=== PATIENT | female | born 1985 | race Caucasian/White ===

== ENCOUNTER 2018-06-29 19:34 | Emergency (ER) | payer OTHER ==
[2018-06-29] MEDS ORDERED: LORazepam 2 MG/ML INJ IVP ONE (19:46)
--- NOTE | 2018-06-29 19:50 | EDPHY ---
H & P Source: Patient Exam Limitations: Clinical condition Time Seen by Provider: 06/29/18 19:47 HPI/ROS: CHIEF COMPLAINT: Altered mental status HISTORY OF PRESENT ILLNESS: Patient is a 30-year-old female who was disturbing the peace at [employer]. She was apparently walking up to other shoppers and staring at them and cuffing her hands around her eyes and looking at them closely on their face. She is ambulating without difficulty. She is rambling but is not willing to answer questions. She has dilated pupils. She is moving normally and is continually trying to get out of bed. She is not combative. The paramedics and dose of been unable to obtain any past medical history. She will not tell us her name. For paramedics she was tachycardic with stable blood pressure. Her blood sugar was 130. She also has a faint blanching rash across her chest and upper back. Severity: Moderate Modifying factors: None REVIEW OF SYSTEMS: Unable to obtain secondary to condition EXAM: GENERAL: Awake, tracks, moves all extremities. HEAD: Atraumatic, normocephalic. EYES: Pupils 4+, equal round and reactive to light, extraocular movements intact, sclera anicteric, conjunctiva are normal. ENT: TMs normal, nares patent, oropharynx clear without exudates. Moist mucous membranes. NECK: Normal range of motion, supple without lymphadenopathy or JVD. LUNGS: Breath sounds clear to auscultation bilaterally and equal. No wheezes rales or rhonchi. HEART: Regular rate and rhythm without murmurs, rubs or gallops. ABDOMEN: Soft, nontender, normoactive bowel sounds. No guarding, no rebound. No masses appreciated. BACK: No CVA tenderness, no spinal tenderness, step-offs or deformities EXTREMITIES: Normal range of motion, no pitting or edema. No clubbing or cyanosis. NEUROLOGICAL: Cranial nerves II through XII grossly intact. Normal speech, normal gait. 5/5 strength, normal movement in all extremities, normal sensation , normal reflexes PSYCH: Unable to assess SKIN: Fine blanching rash to upper chest and back consistent with vasodilation (Greg Copploa) Constitutional: Initial Vital Signs Temperature (C) 36.8 C 06/29/18 19:50 Heart Rate 143 H 06/29/18 19:50 Respiratory Rate 18 06/29/18 19:50 Blood Pressure 138/113 H 06/29/18 19:50 O2 Sat (%) 95 06/29/18 19:50 O2 Delivery Mode Room Air Allergies/Adverse Reactions: Unable to Assess Allergy (Unverified 06/29/18 19:50) Home Medications: Medication Instructions Recorded Unobtainable 06/29/18 Medical Decision Making - Diagnostics EKG Interpretation: An EKG obtained and was read and documented in trace view. Please see trace view for full reading and report. Sinus rhythm, no acute ischemic changes or arrhythmias or interval abnormalities. (Greg Coppola) ED Course/Re-evaluation: 10:50 p.m. patient heart rate now 80. Blood pressure 130/70. She is sleeping comfortably. She will follow commands and is moving without difficulty. She is not hyperthermic. She still has slightly enlarged pupils but they are reactive. Still not answering questions. Will transfer care to Dr. Garcia 11: 00 p.m.. (Greg Coppola) Differential Diagnosis: Partial list of the Differential diagnosis considered include but were not limited to; sympathomimetic, anticholinergic, schizophrenic and although unlikely based on the history and physical exam, I also considered polysubstance abuse, serotonin syndrome, malignant hypothermia. (Greg Coppola) Other Provider: [address] Coppola pending re-evaluation. 0420 patient is now a will wake but somnolent from the medications. She is answering questions. Patient admits she has a history of bipolar disorder. Takes Effexor and other medications. Also states she has been self medicating with cannabinoids. Patient states she is not recall have an episode like this but she is very vague. Not answering direct questions. Vital signs have resolved. Given her underlying diagnosis and this event plan will be to have a mental health evaluation later this morning. (Jack Garcia) I assumed care of the patient at 0700. The patient was evaluated by Mental Health. They have now obtain the history that she used hallucinogenic mushrooms yesterday. Patient does report a history of bipolar mood disorder and has been off her medications for 2 weeks. At this point time she is now alert and oriented. She has no homicidal or suicidal ideations in her abnormal behavior has resolved. The patient does contract for safety. She has requested outpatient resources which she has been provided. (Colin Lacy) - Data Points Laboratory Results: Laboratory Results 06/29/18 20:08 06/29/18 20:08 Medications Given: Discontinued Medications Haloperidol Lactate (Haldol Injection) 5 mg IVP EDNOW ONE Stop: 06/29/18 20:20 Last Admin: 06/29/18 20:21 Dose: 5 mg Lorazepam (Ativan Injection) 1 mg IVP EDNOW ONE Stop: 06/29/18 19:47 Last Admin: 06/29/18 19:46 Dose: 1 mg Departure - Departure Disposition: Home, Routine, Self-Care Clinical Impression: Hallucinogenic mushrooms use disorder, moderate Bipolar mood disorder Qualifiers: Active/Remission status: currently active Current bipolar episode type: mixed Current episode severity: moderate Qualified Code(s): F31.62 - Bipolar disorder , current episode mixed, moderate Condition: Good Instructions: Bipolar Disorder (ED) Additional Instructions: 1. Please follow-up with the mental health resources provided in the ED today. 2. [facility] does operate a 02/11 psychiatric crisis unit located at [address] [place] [address]. The telephone number for the 24 hour crisis center is [phone]. 3. Please return to the ED if you are feeling suicidal, having thoughts of harming yourself/others or should you feel unsafe or have worsening symptoms. Referrals: [facility],. [Clinic] - As per Instructions
[2018-06-29] MEDS ORDERED: HALOPERIDOL LACT 5 MG/ML INJ ONE (20:12)
[2018-06-29] MEDS ORDERED: HALOPERIDOL LACT 5 MG/ML INJ IVP ONE (20:19)
[2018-06-29 20:21] LABS: PLATELET COUNT 334 10^3/uL (150-400)
--- NOTE | 2018-06-29 21:00 | CPEKG ---
Test Reason : OPEN Blood Pressure : / mmHG Vent. Rate : 089 BPM Atrial Rate : 089 BPM P-R Int : 123 ms QRS Dur : 083 ms QT Int : 371 ms P-R-T Axes : 074 070 058 degrees QTc Int : 452 ms Sinus rhythm Confirmed by Irineo Ríos ([id number]) on 06/29/2018 8:59:43 PM Referred By: IRINEO RÍOS Confirmed By:Irineo Ríos
[2018-06-30 10:12] VITALS: BP 108/78
--- NOTE | 2018-06-30 11:09 | ASMTTLCEVL ---
TLC Evaluation - Basic Information Evaluation Start Date and 06/30/2018 08:45 AM Time Hospital Status Answers: M1 Hold 72-hr M1 Hold Start Date 06/29/2018 06:57 PM and Time Patient statement Notes: I went to a store, was out and about. Thao been off my meds. I dont remember yesterday too well. I did use mescaline yesterday. Im not suicidal. Narrative Notes: Pt is a 32 yo, , unemployed, homeless, female with reported history of Bipolar Disorder, cannabis use disorder, severe, and recent hallucinogen use, brought to [facility] ED by [facility] on M1 hold which noted: Respondent did not know where she was, walked up to customer and staff only a few inches away from them, appeared to be on some sort of drug, no blinking of eyes, strange odor from the person, can not tell name or anything about her. Pt had been administered Haldol 5 mg IVP at hrs and Ativan 1 mg IVP at 6 hrs. Pt reported being diagnosed with Bipolar about 4 years ago. She reported she has been off her psych meds for the past 2 weeks because she lost her prescription from [facility]. Pt appeared somnolent, required additional time and frequent prompts to wake up when attempting to complete BDI/BSS questionnaires. Her pupils continued to appear somewhat dilated. BAL was zero. UDS results positive for marijuana. Pt admitted to using mescaline yesterday, which is not detected via standard UDS screen. Pt denied having recent/current suicidal ideation/intent/plan to kill self. Pt denied any homicidal ideation/intent/plans to harm/kill anybody else. She was somewhat alert but oriented X 4. Diagnosis History Notes: Pt reported being diagnosed with Bipolar about 4 years ago. Prior suicide attempts Notes: Pt denied any past history of suicide attempts. Prior hospitalizations Notes: Pt reported having been hospitalized two times. Her first hospitalization was at [facility] near [place], [place] at age 28. She reported being hospitalized the second time at [facility] in [place], [place] 2 years ago for depression. Treatment Responses Notes: She reported she has been off her psych meds for the past 2 weeks because she lost her prescription from [facility]. History of violence Notes: Pt denied any homicidal ideation/intent/plans to harm/kill anybody else. Pt denied any past history of aggression or violence. Therapist: None. Psychiatrist: None. Medications (name, dosage, route, freq uency) Notes: Pt reported being off her psych medications for the past 2 weeks because she lost her prescription from [facility]. She reported her home medications are Effexor, Seroquel and [place] but could not recall dosages. Allergies/Reaction Notes: NKDA. Sleep Notes: WNL. Appetite Notes: WNL. Medical/Surgical history Notes: Noncontributory. Pts nose did not appear straightly aligned possible past history of a broken nose. Substance use history (frequency, intensity, his tory, duration) Notes: Pt reported having first tried alcohol at age 16. She stated she drinks socially, perhaps once a week, typically between 3-5 mixed drinks per episode, and last reported alcohol use was 2 weeks ago. Pt reported having first tried marijuana at age 16. She reported she smokes a bowl of marijuana daily and occasionally uses edibles. She reported past use of LSD and mescaline. She reported that her last episode of using hallucinogens prior to yesterday was 3 months ago. She reported having used mescaline yesterday. BAL was zero. UDS results positive for marijuana. Pt admitted to using mescaline yesterday, which is not detected via standard UDS screen. Family composition Notes: Pt reported that her parents remain to one another and reside in [place], [place]. She reported she has two younger brothers, ages 24 and 26, also living in [place]. Need for family Answers: No participation in patient's care Family psychiatric/substance abuse history Notes: Pt reported that her father has history of abusing alcohol and marijuana. Pt reported she had a cousin that committed suicide by hanging at age 19 when pt was age 20. Developmental history Notes: Pt reported being born and grew up in the [place] area. She endorsed having achieved normal childhood developmental milestones. She denied any childhood history of TBIs, LOC or concussions. She denied any childhood history of physical, emotional or sexual abuse/trauma, however added that her parents were away from home a lot for work and that she had to spend a lot of time taking care of her two younger brothers. When asked if she had experienced any trauma in her adult life, pt stated Id rather not talk about it. Abuse concerns Answers: None Marital status/children Notes: Pt at age 24 and was 3 years. She has a 1 yo son under the care of her parents. Pt reported currently involved in a casual dating relationship with a boyfriend currently. Living situation Notes: Pt reported that for the past 3 months, she has been staying off and on with three female friends. The friends names were reported as Fela, Cleo, and Juana. Sexual history/orientation Notes: Active. Heterosexual. Peer support/family strengths Notes: Friends and neighbors. Education level/history Notes: Pt reported obtaining a bachelors degree in education in 2014 from an online program she called [employer]. She started study in 2011. 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 She reported she financially supports herself from some savings. Notes: None. Legal Notes: Pt denied any arrest/legal history. Sikh/Spiritual Notes: Pt stated Im more spiritual. Leisure Notes: Pt reported she enjoys reading, yoga, bike rides, and hiking. Patient's strengths Answers: Artistic/Creative/Musical (Please select at least TWO strengths): Athletic Honest Motivated for Treatment Willingness TLC Evaluation - Mental Status Exam Appearance: Answers: Clean Unkempt Eye Contact: Answers: Intermittent Mood: Answers: Euthymic Affect: Answers: Calm Congruent w/ Mood Flat Subdued Behavior: Answers: Cooperative Fatigued Passive Speech: Answers: Relevant Logical Clear Coherent Soft Thought Process: Answers: Organized Alert Goal Oriented Intact Insight: Answers: Fair Judgement: Answers: Fair Manic Signs/Symptoms Answers: Impulsivity Depression Answers: Difficulty Concentrating Signs/Symptoms: Diminished Interest Diminished Pleasure Flat Affect Psychomotor Retardation Withdrawn Hallucinations: Answers: None Current Stage of Change Answers: Precontemplation Pt reported to have Answers: No suicidal/self-injuring ideation/behavior? Pt reported to be making Answers: No suicidal/self-injuring threats? Pt reported to have Answers: No aggression/assault ideation/behavior? Pt reported to be making Answers: No aggression/assault threats? Pt exhibits inability to Answers: No care for self/grave disability? Ideation/behavior is Answers: No chronic? Patient has a specific Answers: No plan? Pt has access to means to Answers: No execute the plan? Ideation involves Answers: No serious/lethal intent? Ideation has Answers: No delusional/hallucinatory content? History of Answers: No suicidal/self-injuring ideation, behavior, or threats? History of Answers: No aggressive/assaultive ideation, behavior, or threats? History of serious Answers: No physical harm to self/others while in treatment setting? TLC Evaluation - Suicide/Homicide Risk Suicide Risk Factors: Answers: Alcohol/Heavy Drug Use Bipolar Disorder Financial Difficulties Flat Affect Hx of Suicide Attempt by Family Member Impulsivity Inadequate Social Support Intoxication Lack of Sikh Support Lack/Loss of Employment Unstable Living Situation Homicide/violence risk Answers: None factors: Current Suicidal Answers: No Ideation? Current Suicidal Ideation Answers: No in the Past 48 Hours? Current Suicidal Ideation Answers: No in the Past Month? Current Suicidal Answers: No Ideation, Worst Ever? Suicide Internal Answers: Absence of Psychosis Protective Factors: Stephanie with Stress Suicide External Answers: Social Support Protective Factors: Ranking of patient's Answers: Low suicidal risk: Ranking of patient's Answers: Low homicidal risk: TLC Evaluation - Wrap-up BDI Total Score: 25 BDI Question #2 Score: 2 BDI Question #9 Score: 0 BSS Total Score: 4 AXIS I Diagnosis (include DSM-V and ICD-10 codes), must also be entered in [employer], which is the source of truth. Notes: Other Hallucinogen Intoxication (Mescaline) with use disorder, mild 292.89 (F16.129) Cannabis Use Disorder, moderate 304.30 (F12.20) Bipolar I Disorder, mild 296.41 (F31.11) In consultation with [facility] ED physician, Fabiano Lacy MD, Dr. Lacy concurred that pt does not appear to meet 27-65 criteria requiring psychiatric hospitalization as pt does not appear to be an imminent risk of harm to self/others/gravely disabled due to a mental illness condition. Dr. Lacy provided verbal order read back vacating M1 hold at 0937 hrs. Evaluation End Date and 06/30/2018 11:00 AM Time (HH:MICHAEL): Date Signed: 06/30/2018 11:09 AM Electronically Signed By:Farhad Huggins
--- NOTE | 2018-06-30 11:10 | ASMTTCLDSP ---
TLC Discharge Disposition Disposition: Answers: Discharge If Answers: Yes DISCHARGED: Patient/family given suicide hotline info & SAMHSA brochure? Disposition Notes: Notes: Pt stated commitment or ability to keep self safe, denied thoughts of self harm or harm to others. Pt expressed a desire to f/u with [facility] to get her prescriptions refilled and to follow up with [facility]. Pt was given local hotline information and SAMHSA brochure After an Attempt. Discharge Concerns/Recommendations: Notes: In consultation with [facility] ED physician, Fabiano Lacy MD, Dr. Lacy concurred that pt does not appear to meet 27-65 criteria requiring psychiatric hospitalization as pt does not appear to be an imminent risk of harm to self/others/gravely disabled due to a mental illness condition. Dr. Lacy provided verbal order read back vacating M1 hold at 0937 hrs. Was patient given the Answers: Not applicable Inpatient Behavioral Health Prohibited Belongings List while in the ED? Psychiatrist vacating M1 Fabiano Lacy MD Hold: Date and time M1 hold 06/30/2018 09:37 AM vacated (time format is hh:mm): Type of Hold: Answers: M1/72-hour Hold Hold initiated by: Answers: Police Date Signed: 06/30/2018 11:10 AM Electronically Signed By:Farhad Huggins
== END 2018-06-30 10:13 | disposition home or self-care (01) ==
DX: F16.20 Hallucinogen dependence, uncomplicated (principal); F31.62 Bipolar disorder, current episode mixed, moderate
CPT/HCPCS: 80305; 96374; G0480; J1630; J2060